=== PATIENT | male | born 1955 | race Caucasian/White ===

== ENCOUNTER → 2018-09-18 | Outpatient (CLI) | payer OTHER, MEDICARE ==
[~2018-09-18] MED LIST: ACE325 PO; ACE500 PO; ACET-1966 PO; AMI10 PO; AMLO-125 PO; AUG875 PO; CEL100 PO; CELE-1 PO; DIA5 PO; DIAZ-308 PO; DOC100 PO; EPIN0.3P15 IM; GAB300 PO; GABA-1 PO; GLIP-152 PO; HYDR-3724 PO; LIS20 PO; LISI-362 PO; LOVA20TA99 PO; MET800 PO; METF-452 PO; OXYC20TA86 PO; PER PO; POTA25TA9 PO; PRED20TA6 PO; QUALAQUIN PO; QUININE PO; RAM8 PO; SLEEPING PILL PO; TRIA0.2597 PO; [UNRECOGNIZED DRUG - CODE] PO; [UNRECOGNIZED DRUG - CODE] PO
[2018-09-18 15:50] LABS: PLATELET COUNT, AUTOMATED 209 K/uL (150-450)
--- NOTE | 2018-09-18 16:58 | EKG ---
FACILITY: [facility] PATIENT NAME: SHILPI FIGUEROA : [id number] MR: [id number] V: [id number] EXAM DATE: ORDERING PHYSICIAN: JOSE ANTONIO WILSON TECHNOLOGIST: Test Reason : Pre-op Blood Pressure : / mmHG Vent. Rate : 057 BPM Atrial Rate : 057 BPM P-R Int : 184 ms QRS Dur : 106 ms QT Int : 422 ms P-R-T Axes : 072 -79 053 degrees QTc Int : 410 ms Sinus bradycardia Left axis deviation R wave progression consistent with an old ant/sep [place] vs lead placement No previous ECGs available Confirmed by MARSHA ORDONEZ ([id number]) on 09/18/2018 6:09:23 PM Referred By: Confirmed By:MARSHA ORDONEZ
== END ==
LOC: LAB 14:34
PROVIDERS: ATTEND Orthopaedic Surgery
DX: Z01.812 Encounter for preprocedural laboratory examination (principal); Z01.810 Encounter for preprocedural cardiovascular examination; M50.01 Cervical disc disorder with myelopathy, high cervical region
CPT/HCPCS: 36415; 82040; 82247; 82310; 82374; 82435; 82565; 82947; 83036; 84075; 84132; 84155; 84295; 84450; 84460; 84520; 85025; 93005

== ENCOUNTER 2018-10-01 01:38 | Inpatient (IN) | payer OTHER, MEDICARE ==
--- NOTE | 2018-09-28 16:41 | NUR ---
Attempted to contact pt. about change in surgery time. no answer. no vm left.vm left prior.
[2018-09-30 12:37] LABS: INR 0.99
[~2018-10-01] VITALS: Ht 170.2 cm; Wt 77.1 kg
[~2018-10-01 01:38] MED LIST changes: +ACET-2146 PO; +CALC1TAB32 PO; +CYCL10TA29 PO; +HYDR-653 PO; +POTA99TA6 PO; +SERT-184 PO; +VITA1CAP50 PO; +ZINC10LO9 PO
[2018-10-01] MEDS ORDERED: NS(*) 0.9% 500 ML BAG 500 ML ONE ×2 (05:14→06:56)
[2018-10-01] MEDS: ACETAMINOPHEN 500 MG TAB PO ONE ×2 (05:44→06:45)
[2018-10-01] MEDS ORDERED: fentaNYL CITR 250 MCG/5 ML AMP ONE (06:20)
[2018-10-01] MEDS ORDERED: NS 0.9% 20 ML SDV 40 ML ONE (06:26)
[2018-10-01] MEDS ORDERED: REMIFENTANIL HCL 1 MG VIAL ONE ×4 (06:30→10:42)
[2018-10-01] MEDS ORDERED: PROPOFOL(*)1000 MG/100 ML VIAL 100 ML ONE (06:31)
[2018-10-01] MEDS ORDERED: THROMBIN (BOVINE) 20,000 UNIT VIAL ONE (06:35)
[2018-10-01] MEDS ORDERED: DEXAMETHASONE SOD PHOS 10MG/ML ONE (06:35)
[2018-10-01] MEDS ORDERED: ONDANSETRON 4 MG/2 ML VIAL ONE (06:36)
[2018-10-01] MEDS ORDERED: KETAMINE HCL 200 MG/20 ML MDV ONE (06:36)
[2018-10-01] MEDS ORDERED: LIDOCAINE MPF 1% 5 ML VIAL ONE (06:36)
--- NOTE | 2018-10-01 06:45 | NUR ---
PATIENT TOOK 1 NORCO THIS MORNING. TALKED WITH DR. MATSON AND HE WANTED TO ONLY ADMINISTER 1 500 MG TABLET OF TYLENOL
[2018-10-01 07:15] VITALS: BP 132/90
[2018-10-01] MEDS ORDERED: PROPOFOL EMUL(*) 10MG/ML 20 ML 40 ML ONE (07:37)
[2018-10-01] MEDS ORDERED: hydrALAZINE HCL 20 MG/ML VIAL ONE (08:23)
[2018-10-01] MEDS ORDERED: PROPOFOL EMUL(*) 10MG/ML 20 ML 60 ML ONE ×3 (08:36→10:37)
--- NOTE | 2018-10-01 08:43 | Procedure Note ---
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
[2018-10-01] MEDS ORDERED: LIDOCAINE/SOD BICARB 8.4% SYR ID ONE (09:10)
[2018-10-01] MEDS ORDERED: ceFAZolin(*) 2GM/D5W 50ML 50 ML IVPB ONE (09:10)
[2018-10-01] MEDS ORDERED: BACITRACIN 50000 UNIT/VIAL 50,000 UNIT in NS 0.9% IRRIG(*) 1000ML PLCT 1,000 ML IR PRN (09:10)
[2018-10-01] MEDS ORDERED: NORMOSOL R SOLN(*) 1000 ML BAG 1,000 ML IV PRN (09:10)
[2018-10-01] MEDS ORDERED: FAMOTIDINE 20 MG TAB PO ONE (09:10)
[2018-10-01] MEDS ORDERED: MIDAZOLAM 2 MG/2 ML VIAL IVP PRN (09:10)
[2018-10-01] MEDS ORDERED: fentaNYL CITR 100 MCG/2 ML AMP ONE (11:47)
[2018-10-01] MEDS ORDERED: MAGNESIUM HYDROXIDE* 30ML UDCP PO PRN (11:55)
[2018-10-01] MEDS ORDERED: ACETAMINOPHEN(*)1000 MG/100 ML 100 ML IVPB PRN (11:55)
[2018-10-01] MEDS ORDERED: ONDANSETRON 4 MG/2 ML VIAL IVP PRN (11:55)
[2018-10-01] MEDS ORDERED: FLUSH 10 ML SYR IVP PRN (11:55)
[2018-10-01] MEDS ORDERED: diphenhydrAMINE 25 MG CAP PO PRN (11:55)
[2018-10-01] MEDS ORDERED: ACETAMINOPHEN 500 MG TAB PO PRN (11:55)
[2018-10-01] MEDS ORDERED: BISACODYL 10 MG SUPP PR PRN (11:55)
[2018-10-01] MEDS ORDERED: HYDROmorphone HCL 2 MG/ML SDV IVP PRN (11:55)
[2018-10-01] MEDS ORDERED: DIAZEPAM 5 MG TAB PO PRN (11:55)
[2018-10-01] MEDS ORDERED: LR(*) 1000 ML BAG 1,000 ML IV PRN (11:55)
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
[2018-10-01 12:54] VITALS: BP 136/71
[2018-10-01] MEDS ORDERED: GABA-549 PO (13:11)
[2018-10-01 13:15] VITALS: BP 124/69
[2018-10-01] MEDS: oxyCODONE HCL 5 MG CAP PO PRN ×3 (13:17→23:32)
[2018-10-01 13:30] VITALS: BP 124/61
--- NOTE | 2018-10-01 13:55 | Hospitalist Consultation ---
History of Present Illness Requesting Physician Dr. Rodriguez Reason for Consult Medical Management of Comorbidities Chief Complaint s/p cervical fusion History of Present Illness He was admitted s/p cervical fusion. It is reported the surgery went well and without complication. History Problems: (1) Depression Status: Chronic (2) Hyperlipidemia Status: Chronic (3) Hypertension Status: Chronic (4) Type 2 diabetes mellitus Status: Chronic (5) Amputation arm, bilat (6) Hx of deep venous thrombosis Status: Resolved Home Meds Reported Medications Gabapentin (GABAPENTIN) 300 Mg Capsule, 1200 MG PO HS, CAPSULE 10/01/18 Sertraline Hcl (SERTRALINE HCL) 50 Mg Tablet, 1 TAB PO QDAY, TAB 09/24/18 Lovastatin (LOVASTATIN) 20 Mg Tablet, 20 MG PO QDAY 09/24/18 Hydrocodone Bit/Acetaminophen (NORCO 5-325 TABLET) 1 Each Tablet, 1 EACH PO Q8H PRN for PAIN, TAB 09/24/18 Calcium Carb & Cit/Vitamin D3 (CALCIUM + D3 ER TABLET) 1 Each Tablet.er, 1 EACH PO QDAY 09/24/18 Amlodipine Besylate (AMLODIPINE BESYLATE) 5 Mg Tablet, 1 TAB PO QDAY, TAB 09/24/18 Acetaminophen 500 Mg Tab (ACETAMINOPHEN EXTRA STRENGTH) 500 Mg Tablet, 500 MG PO Q4-6H, TAB 09/24/18 Metformin Hcl (METFORMIN HCL) 1,000 Mg Tablet, 1 TAB PO BID, TAB 05/11/17 Celecoxib (CELEBREX) 200 Mg Capsule, 200 MG PO BID, CAPSULE 05/11/17 Gabapentin (Neurontin) 600 Mg Tablet, 1 TAB PO BIDBL, 0 Refills 12/04/09 Discontinued Reported Medications Potassium Gluconate (POTASSIUM) 99 Mg Tablet, 99 MG PO QDAY 09/24/18 Zinc Gluconate (ZINC) 10 Mg Lozenge, 10 MG PO QDAY, LOZENGE 09/24/18 Cyclobenzaprine Hcl (CYCLOBENZAPRINE HCL) 10 Mg Tablet, 10 MG PO TID, #9 TAB 09/24/18 Vitamin B Complex & Vit C No.3 (B COMPLEX WITH VITAMIN C) 1 Each Capsule, 1 EACH PO, CAPSULE 09/24/18 Lisinopril (LISINOPRIL) 10 Mg Tablet, PO QHS, TAB 12/05/17 Diazepam (DIAZEPAM) 5 Mg Tablet, 5 MG PO 2-3XD, #15 TAB 05/11/17 Hydrocodone Bit/Acetaminophen (Hydrocodone-Apap 5-500 Mg Tab) 1 Each Tablet, 1 EACH PO TID, 0 Refills 12/04/09 Discontinued Scripts Epinephrine (EPIPEN 2-IMLAN) 0.3 Mg/0.3 Ml Pen.injctr, 0.3 MG IM DIRECTED PRN for ALLERGY SYMPTOMS, #1 PACK 0 Refills Prov:ARACELIS FRAUSTO MD 12/05/17 Prednisone (PREDNISONE) 20 Mg Tablet, 60 MG PO QDAY, #6 TAB 1 Refill Prov:ARACELIS FRAUSTO MD 12/05/17 Allergies: Coded Allergies: garlic (Verified Allergy, Mild, tongue/mouth swelling, 12/05/17) Uncoded Allergies: DARCY SEEDS (Allergy, Severe, SWELLS UP TONGUE LIPS AND THROAT, 05/08/08) SUNFLOWER SEEDS (Allergy, Severe, SWELLS UP TONGUE LIPS AND THROAT, 05/08/08) nuts (Allergy, Severe, tongue/mouth swelling, 09/07/07) tomatoes (Allergy, Severe, tongue/mouth swelling, 09/07/07) SAUSAGE (Allergy, Unknown, 09/24/18) Patient History: FH: alcohol abuse MOTHER FH: heart disease FATHER BROTHER OR SISTER Hx Smoking: No Smoking Status: Never Smoker Caffeine Intake: Soda Caffeine/Cups Per Day: ENERGY DRINKS 2/WK Social Drug Use: Never Review of Systems All Systems Reviewed/Normal: Yes, Except as Noted Constitutional: Other (sleeping throughout exam) Exam Vital Signs Vital Signs Date Time Temp Pulse Resp B/P (MAP) Pulse Ox O2 Delivery O2 Flow Rate FiO2 10/01/18 12:59 91 Nasal Cannula 4.0 10/01/18 12:54 98.3 91 16 136/71 (92) General Appearance: No Acute Distress, Other (sleeping throughout exam) Respiratory: No Respiratory Distress Assessment and Plan Problems: (1) S/P cervical spinal fusion Status: Acute Assessment & Plan: Followed by Dr. Rodriguez. (2) Hypertension Status: Chronic Assessment & Plan: Continue chronic amlodipine with hold parameters. (3) Hyperlipidemia Status: Chronic Assessment & Plan: Continue chronic lovastatin. (4) Type 2 diabetes mellitus Status: Chronic Assessment & Plan: Continue chronic Metformin. He will be placed on SS insulin #2, ADA diet, and AC/HS blood glucose monitoring. (5) Depression Status: Chronic Assessment & Plan: Continue chronic Zoloft. (6) Amputation arm, bilat Assessment & Plan: He uses his teeth to lift things. He has poor dentition because of lifting. (7) Hx of deep venous thrombosis Status: Resolved Assessment & Plan: In 2014. He reports from blood pressure cuff being left on his leg. Recommend strong use of early ambulation, Flash hose and SCDs to prevent blood clot post-operatively. Venous Thromboembolism Antithrombotics Is Pt On Any Antithrombotics?: No Exam Sepsis Risk: No Definite Risk Problem Qualifiers (1) Hypertension: Hypertension type: essential hypertension Qualified Codes: I10 - Essential (primary) hypertension CAPRI WILLIAM PATTERN DRAFTER Oct 01, 2018 13:55
--- NOTE | 2018-10-01 14:05 | RADIOLOGY IMAGING REPORT ---
FACILITY: [facility] PATIENT NAME: Kate Hampton : 1955 MR: [id number] V: [id number] EXAM DATE: ORDERING PHYSICIAN: JOSE ANTONIO WILSON TECHNOLOGIST: Location: [facility] Patient: Kate Hampton : 1955 Visit/Account:[id number] Date of Sevice: 10/01/2018 Exam type: CERVICAL SPINE 2 OR 3 VIEW History: c3-4 c6-7 ACDF Comparison: None. Findings: To portable intraoperative crosstable lateral views of cervical spine were submitted demonstrating an terior plate and screws from C4 to C6 with intervertebral disc spacers. Also noted are anterior fusi on devices at C3-4 and C6-7. Moderate to severe disc space narrowing at C2-3 is present. Incomplete ly imaged is an endotracheal tube. IMPRESSION: 1. As above Report Dictated By: Xuan Dukes MD at 10/01/2018 1:56 PM Report E-Signed By: Xuan Dukes MD at 10/01/2018 1:59 PM WSN:[id number]
[2018-10-01] MEDS: APAP/HYDROCODONE 325/5 TAB PO PRN ×2 (14:24→19:39)
[2018-10-01] MEDS ORDERED: NS(*) 0.9% 250 ML BAG 250 ML ONE (16:29)
--- NOTE | 2018-10-01 16:40 | NUR ---
Physical Therapy Impression PT eval completed, followed by transfer trng and gait to access BR. Pt requires 2 hand CGA by PT and Min assist to stabilize when center of gravity gets ahead of base of support. Pt tends to drag R) LE and not step fully forward with it, while center of gravity is already progressing forward. PT assisted with 3 situations that would have likely resulted in a fall if PT had not been present to instruct pt to stop progressing forward and gain his center of gravity over his base of support. As, Pt does not have B) UE's he also has no means to safely catch or support himself in the event of a fall, creating a much more hazardous situation during the immediate post-op healing process. Pt would not be safe to return home at this level of balance and would greatly benefit from an aggressive rehab approach such as an acute rehab unit that specializes in neuro re-ed. Physical Therapy Goals 1. Pt to be Modified indep for bed mobility and sup<>sit transfers 2. Pt to be Modified indep for sit to/from stand transfers 3. Pt to be safe with CGA/SBA for ambulation x 150' with safe turns to negotiate pathways. Patient's Goals
[2018-10-01] MEDS: ceFAZolin(*) 2GM/D5W 50ML 50 ML IVPB SCH (16:41)
[2018-10-01 19:28] VITALS: BP 146/71
[2018-10-01] MEDS: BENZOCAINE/MENTHOL 1 EACH LOZG PO PRN ×3 (19:44→23:32)
[2018-10-01] MEDS: GABAPENTIN 300 MG CAP PO SCH (21:27)
[2018-10-01] MEDS: DOCUSATE SODIUM 100 MG CAP PO SCH (21:27)
--- NOTE | 2018-10-01 22:13 | NUR ---
rEPORT GIVEN TO Nikunj colon
[2018-10-01 22:38] VITALS: BP 137/68
[2018-10-02] MEDS: APAP/HYDROCODONE 325/5 TAB PO PRN ×4 (01:29→21:28)
[2018-10-02] MEDS: ceFAZolin(*) 2GM/D5W 50ML 50 ML IVPB SCH ×2 (01:30→09:39)
[2018-10-02 03:05] VITALS: BP 170/69
[2018-10-02] MEDS: BENZOCAINE/MENTHOL 1 EACH LOZG PO PRN ×4 (03:18→21:29)
[2018-10-02 07:14] VITALS: BP 150/78
[2018-10-02] MEDS: oxyCODONE HCL 5 MG CAP PO PRN (08:05)
[2018-10-02] MEDS: GABAPENTIN 300 MG CAP PO SCH ×3 (08:06→21:29)
[2018-10-02] MEDS ORDERED: metFORMIN HCL 500 MG TAB PO SCH (09:00)
[2018-10-02] MEDS: DOCUSATE SODIUM 100 MG CAP PO SCH ×2 (09:38→21:29)
[2018-10-02] MEDS: metFORMIN HCL 500 MG TAB PO SCH ×2 (09:38→16:59)
[2018-10-02] MEDS: LOVASTATIN 20 MG TAB PO SCH (09:38)
[2018-10-02] MEDS: SERTRALINE HCL 50 MG TAB PO SCH (09:38)
[2018-10-02] MEDS: amLODIPine BESYL(*) 5 MG TAB PO SCH (09:38)
--- NOTE | 2018-10-02 09:58 | Hospitalist Progress Note ---
Subjective Progress Notes Subjective He was admitted s/p cervical fusion. He has no complaints this morning. He had no acute events overnight. Patient Complains of: Cardiovascular: No: Chest Pain Respiratory: No: Shortness of Breath Physical Exam Vital Signs Date Time Temp Pulse Resp B/P (MAP) Pulse Ox O2 Delivery O2 Flow Rate FiO2 10/02/18 07:14 98.7 16 150/78 (102) 93 Nasal Cannula 2.0 10/02/18 03:05 74 Intake and Output 10/02/18 07:02 Intake Total 4100 ml Output Total 173 ml Balance 3927 ml Intake Oral 300 ml IV Total 3800 ml Output Drainage Total 55 ml Estimated Blood Loss 100 ml Other 18 ml # Voids 2 General Appearance: Alert, Awake, No Acute Distress, Afebrile Cardiovascular: Regular Rate and Rhythm Respiratory: No Respiratory Distress, Clear to Auscultation Extremities: Other (amputation of bilateral upper extremities) Psych: Alert & Oriented X3, Appropriate Mood & Affect Assessment and Plan Problems: (1) S/P cervical spinal fusion Status: Acute Assessment & Plan: Followed by Dr. Rodriguez. PT has recommended ARU for further rehab prior to returning home. (2) Hypertension Status: Chronic Assessment & Plan: Continue chronic amlodipine with hold parameters. (3) Hyperlipidemia Status: Chronic Assessment & Plan: Continue chronic lovastatin. (4) Type 2 diabetes mellitus Status: Chronic Assessment & Plan: Continue chronic Metformin. He will be placed on SS insulin #2, ADA diet, and AC/HS blood glucose monitoring. (5) Depression Status: Chronic Assessment & Plan: Continue chronic Zoloft. (6) Amputation arm, bilat Assessment & Plan: He uses his teeth to lift things. He has poor dentition because of lifting. Having history of bilateral arm amputation could likely exacerbate his rehab potential post-operatively. (7) Hx of deep venous thrombosis Status: Resolved Assessment & Plan: In 2014. He reports from blood pressure cuff being left on his leg. Recommend strong use of early ambulation, Flash hose and SCDs to prevent blood clot post-operatively. Exam Sepsis Risk: No Definite Risk Problem Qualifiers (1) Hypertension: Hypertension type: essential hypertension Qualified Codes: I10 - Essential (primary) hypertension CAPRI [facility] Oct 02, 2018 09:58
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
--- NOTE | 2018-10-02 10:23 | RADIOLOGY IMAGING REPORT ---
FACILITY: [facility] PATIENT NAME: Kate Hampton : 1955 MR: [id number] V: [id number] EXAM DATE: ORDERING PHYSICIAN: JOSE ANTONIO WILSON TECHNOLOGIST: Location: [facility] Patient: Kate Hampton : 1955 Visit/Account:[id number] Date of Sevice: 10/02/2018 Exam type: CERVICAL SPINE 2 OR 3 VIEW History: post surgical Comparison: October 01, 2018, intraoperative views. Findings: AP and lateral views were obtained of the cervical spine in a cervical collar. Anterior fusion devic es are identified at C3-4 and at C6-7. Anterior plate and screws are also noted from C4 through C6 w ith additional intervertebral disc spacers. There is straightening of normal cervical lordosis consi stent with the history of a cervical collar. There. Moderate to severe disc space narrowing again n oted at C2-3. The patient's head is canted towards the right. There is a very small amount of soft tissue gas in the prevertebral soft tissues consistent with recent surgery. IMPRESSION: 1. As above Report Dictated By: Xuan Dukes MD at 10/02/2018 10:10 AM Report E-Signed By: Xuan Dukes MD at 10/02/2018 10:16 AM WSN:[email or web address]
[2018-10-02] MEDS: INSULIN HUM LISPRO 100 UN/ML 3 ML VIAL SUBQ PRN ×2 (12:01→21:48)
--- NOTE | 2018-10-02 12:04 | Medical Nutrition Therapy ---
Nutrition Anthropometrics Height (Inches): 67.00 Height (Calculated Centimeters: 170.500790 Weight (Pounds): 170 Weight (Calculated Kilograms): 77.111 BMI: 26.6 Melchor Nutrition Score: Adequate Melchor Nutrition Risk Score: 20 Dietary Referral Nutrition Risk Factors: Nutrition Risk Comment: Physical Findings Physical Appearance: Overweight BMI 25-29 Skin Appearance Skin Appearance: Edema Edema Location Modifier: Both Edema Location: Lower Extremity Type of Edema: Non-Pitting Degree of Edema: Gastrointestinal Symptoms GI Symtoms: Diarrhea Tube Present: Bowel Sounds: Hypoactive Recent Bowel Pattern: Stool Characteristics: Nutrition/Food History Fair Lunch: 3 Egg Salad Sandwichs, Pickle Snacks: Energy Drink, Candy Nutritional Diagnosis Nutritional Risk Acuity 4: Stable Weight Past Medical History: HTN, HLD, DM2, Bilateral arm amputation (1971) Nutritional Acuity: 4-Low Energy Requirement: 2003 (HBE (AF1.3)) Protein Requirement: 77 (1g/kg) Fluid Requirement: 2003 (1mL/kcal) Nutritional Education Nutrition Education Topic: Diabetic Nutrition Learning Barriers: Cognitive Learning Readiness: Interested Teaching Methods: Discussion Response to Teaching: Reinforcement needed Teaching Recipient: Patient Nutrition Counseling: Discussed foods that contain carbohydrates/sugars. Emphasized focusing on meat, non-starchy vegetables, small portion of grains/bread. Also discussed limiting highly concentrated sweets. Nutrition Monitoring & Eval Nutrition Goals: Eat 75-100% Meal Nutrition Follow-Up: Fair Intake Nutrition Monitoring: Monitor blood glucose RD Patient Assessment Time: [address] Assessment Type: RD Assessment Patient Nutrition Acuity: 4-Low Follow Up Date: Oct 09, 2018 Nutritional Comment: 10/02/18: Spoke with pt this am. Pt states he doesn't follow any diet at home. His significant other Maame lives with him and follows a diabetic diet. He doesn't check his BG at home. His weight has been stable, he reports a typical wt of 165-170. Significant past medical history includes HTN, HLD, DM2, bilateral arm amputation. He is on chronic metformin, Lovastatin. Taking Ca/D3 at home. Preprandial BGs have been running slightly high 163-176, after meals have been WNR. Reviewed diabetic diet principles and discussed small goals such as limiting energy drinks and candy. Discussed alternatives beverages and snacks. Will continue to monitor intake, BGs, and need for additional education.LAWRENCE NAVARRO Oct 02, 2018 12:04
[2018-10-02 13:59] VITALS: BP 136/82
[2018-10-02 17:06] VITALS: BP 170/94
[2018-10-02 21:37] VITALS: BP 184/76
[2018-10-03] MEDS: APAP/HYDROCODONE 325/5 TAB PO PRN ×3 (01:58→20:14)
[2018-10-03] MEDS: BENZOCAINE/MENTHOL 1 EACH LOZG PO PRN ×2 (01:58→08:48)
[2018-10-03] MEDS: INSULIN HUM LISPRO 100 UN/ML 3 ML VIAL SUBQ PRN (08:51)
[2018-10-03] MEDS: amLODIPine BESYL(*) 5 MG TAB PO SCH (08:58)
[2018-10-03] MEDS: DOCUSATE SODIUM 100 MG CAP PO SCH ×2 (08:58→21:26)
[2018-10-03] MEDS: GABAPENTIN 300 MG CAP PO SCH ×3 (08:59→21:26)
[2018-10-03] MEDS: LOVASTATIN 20 MG TAB PO SCH (08:59)
[2018-10-03] MEDS: metFORMIN HCL 500 MG TAB PO SCH ×2 (08:59→18:14)
[2018-10-03] MEDS: SERTRALINE HCL 50 MG TAB PO SCH (08:59)
[2018-10-03 09:00] VITALS: BP 145/85
--- NOTE | 2018-10-03 10:08 | Hospitalist Progress Note ---
Subjective Progress Notes Subjective He has complaint of sore throat. He reports the Cepacol lozenges relieve the pain. He has no other concerns or complaints. Patient Complains of: Cardiovascular: No: Chest Pain Physical Exam Vital Signs Date Time Temp Pulse Resp B/P (MAP) Pulse Ox O2 Delivery O2 Flow Rate FiO2 10/02/18 21:37 98.4 75 20 184/76 (112) 90 Nasal Cannula 0.5 Intake and Output 10/03/18 07:02 Intake Total 629 ml Output Total 10 ml Balance 619 ml Intake Oral 570 ml IV Total 59 ml Output Drainage Total 10 ml # Voids 5 General Appearance: Alert, Awake, No Acute Distress, Afebrile Neuro: No Gross deficits ENT: Other (no abnormality seen in patient's throat) Cardiovascular: Regular Rate and Rhythm Respiratory: No Respiratory Distress, Clear to Auscultation GI: Soft and Non-Tender Psych: Alert & Oriented X3, Appropriate Mood & Affect Assessment and Plan Problems: (1) S/P cervical spinal fusion Status: Acute Assessment & Plan: Followed by Dr. Rodriguez. PT has recommended ARU for further rehab prior to returning home. (2) Hypertension Status: Chronic Assessment & Plan: Continue chronic amlodipine with hold parameters. (3) Hyperlipidemia Status: Chronic Assessment & Plan: Continue chronic lovastatin. (4) Type 2 diabetes mellitus Status: Chronic Assessment & Plan: Continue chronic Metformin. He will be placed on SS insulin #2, ADA diet, and AC/HS blood glucose monitoring. (5) Depression Status: Chronic Assessment & Plan: Continue chronic Zoloft. (6) Amputation arm, bilat Assessment & Plan: He uses his teeth to lift things. He has poor dentition because of lifting. Having history of bilateral arm amputation could likely exacerbate his rehab potential post-operatively. (7) Hx of deep venous thrombosis Status: Resolved Assessment & Plan: In 2014. He reports from blood pressure cuff being left on his leg. Recommend strong use of early ambulation, Flash hose and SCDs to prevent blood clot post-operatively. Exam Sepsis Risk: No Definite Risk Problem Qualifiers (1) Hypertension: Hypertension type: essential hypertension Qualified Codes: I10 - Essential (primary) hypertension CAPRI WILLIAM C[employer]ER Oct 03, 2018 10:08
--- NOTE | 2018-10-03 11:19 | NUR ---
Physical Therapy Impression Pt required Min assist for transfer to sitting at EOB, followed by CGA/Min assist for sit to/from stand for safety. Pt then ambulate 10' to BR with good foot clearance and improved posture. After toileting, pt participated in greater distance ambulation in hallway. Pt tolerated 75' with PT providing Min/CGA at gait belt and cues for standing rest breaks to regain balance with center of gravity safely over base of support. As pt fatigues he begins to shuffle his feet, while COG is still traveling forward, causing a very unsafe potential to fall. Especially as pt has no arms, he is unable to catch himself or utilize an assistive device for balance. Pt would benefit from aggressive rehab to address LE strengthening and higher level dynamic balance skills for adequate safety to return to his home environment. Recommend acute rehab setting at this time. Physical Therapy Goals 1. Pt to be Modified indep for bed mobility and sup<>sit transfers 2. Pt to be Modified indep for sit to/from stand transfers 3. Pt to be safe with CGA/SBA for ambulation x 150' with safe turns to negotiate pathways. Patient's Goals
[2018-10-03] MEDS ORDERED: MAGIC MOUTHWASH 90 ML BTL PO PRN ×2 (12:40→14:45)
[2018-10-03 16:46] VITALS: BP 125/65
[2018-10-03 19:32] VITALS: BP 152/62
[2018-10-04 00:02] VITALS: BP 142/68
[2018-10-04] MEDS: APAP/HYDROCODONE 325/5 TAB PO PRN ×4 (00:10→13:53)
[2018-10-04 07:26] VITALS: BP_SYST 132
[2018-10-04] MEDS: DOCUSATE SODIUM 100 MG CAP PO SCH (09:03)
[2018-10-04] MEDS: GABAPENTIN 300 MG CAP PO SCH ×2 (09:04→12:07)
[2018-10-04] MEDS: SERTRALINE HCL 50 MG TAB PO SCH (09:04)
[2018-10-04] MEDS: amLODIPine BESYL(*) 5 MG TAB PO SCH (09:04)
[2018-10-04] MEDS: metFORMIN HCL 500 MG TAB PO SCH (09:04)
[2018-10-04] MEDS: LOVASTATIN 20 MG TAB PO SCH (09:04)
[2018-10-04] MEDS: oxyCODONE HCL 5 MG CAP PO PRN (11:10)
[2018-10-04 11:19] VITALS: BP_SYST 140
[2018-10-04] MEDS ORDERED: BENZ1LOZ PO (12:08)
--- NOTE | 2018-10-04 12:11 | Hospitalist Progress Note ---
Subjective Progress Notes Subjective JONEL overnight, to rehab hospital today. Physical Exam Vital Signs Date Time Temp Pulse Resp B/P (MAP) Pulse Ox O2 Delivery O2 Flow Rate FiO2 10/04/18 11:19 98.5 69 18 140/ 92 Nasal Cannula 1.0 Intake and Output 10/04/18 07:02 Intake Total 300 ml Balance 300 ml Intake Oral 300 ml # Voids 5 General Appearance: Awake, No Acute Distress Cardiovascular: Normal Rhythm & Peripheral Pulses Respiratory: No Respiratory Distress Assessment and Plan Problems: (1) S/P cervical spinal fusion Status: Acute Assessment & Plan: Followed by Dr. Rodriguez. PT has recommended ARU for further rehab prior to returning home. (2) Hypertension Status: Chronic Assessment & Plan: Continue chronic amlodipine with hold parameters. (3) Hyperlipidemia Status: Chronic Assessment & Plan: Continue chronic lovastatin. (4) Type 2 diabetes mellitus Status: Chronic Assessment & Plan: Continue chronic Metformin. ADA diet, PRN Accuchecks but no routine (5) Depression Status: Chronic Assessment & Plan: Continue chronic Zoloft. (6) Amputation arm, bilat Assessment & Plan: He uses his teeth to lift things. He has poor dentition because of lifting. Having history of bilateral arm amputation will exacerbate his rehab potential post-operatively. (7) Hx of deep venous thrombosis Status: Resolved Assessment & Plan: In 2014. He reports from blood pressure cuff being left on his leg. Recommend strong use of early ambulation, Flash hose and SCDs to prevent blood clot post-operatively. Exam Sepsis Risk: No Definite Risk Problem Qualifiers (1) Hypertension: Hypertension type: essential hypertension Qualified Codes: I10 - Essential (primary) hypertension GUILLERMO ANNA DO Oct 04, 2018 12:11
[2018-10-04] MEDS ORDERED: SERTRALINE HCL 50 MG TAB PO SCH (21:00)
[2018-10-04] MEDS ORDERED: LOVASTATIN 20 MG TAB PO SCH (21:00)
--- NOTE | 2018-10-05 12:24 | NUR ---
10/05 I received a call from ISHAAN/Ania this AM asking if "I knew anything about Mr Hampton. He left their rehab center" I didn't know anything about his leaving, only that he was transferred to their rehab yesterday 10/04. I did get ahesme of Tera and his SO Maame and visited with them. He informed me that everyhing was wrong starting at admission but somewehre after midnight he had an allergic reaction and they had transferred him by ambulance to [facility], they did some blood test Xrays, CT Scan and a MRI" I asked him how his neck was doing and strongly suggested he call Dr Rodriguez office and get an appointment for next week for a follow up and to go to the closest ER if any further problems. I also encouraged him to call his workman neetu hearn and let her know the circumstances as there may be a possibility they may not pay.
== END 2018-10-04 14:10 | DRG 472 ==
LOC: OR 01:38 → MED 12:50
PROVIDERS: ADMIT Orthopaedic Surgery; ATTEND Orthopaedic Surgery
PROC: 4A133J1 Monitoring of Arterial Pulse, Peripheral, Percutaneous Approach (ICD-10-PCS; 2018-10-01)
PROC: 06HM33Z Insertion of Infusion Device into Right Femoral Vein, Percutaneous Approach (ICD-10-PCS; 2018-10-01)
PROC: 0RG20A0 Fusion of 2 or more Cervical Vertebral Joints with Interbody Fusion Device, Anterior Approach, Anterior Column, Open Approach (ICD-10-PCS; principal; 2018-10-01 07:08)
PROC: 4A133B1 Monitoring of Arterial Pressure, Peripheral, Percutaneous Approach (ICD-10-PCS; 2018-10-01 07:08)
DX: M47.12 Other spondylosis with myelopathy, cervical region (principal); G95.29 Other cord compression; G31.89 Other specified degenerative diseases of nervous system; F32.9 Major depressive disorder, single episode, unspecified; E78.5 Hyperlipidemia, unspecified; I10 Essential (primary) hypertension; E11.42 Type 2 diabetes mellitus with diabetic polyneuropathy; Z79.84 Long term (current) use of oral hypoglycemic drugs; Z86.718 Personal history of other venous thrombosis and embolism; Z89.222 Acquired absence of left upper limb above elbow; Z89.221 Acquired absence of right upper limb above elbow
CPT/HCPCS: 36415; 36416; 72020; 72040; 82948; 85610; 86850; 86900; 86901; 97162; J0360; J0690; J1100; J2001; J2250; J2405; J2704; J3010; J3490; J7040; J7050